=== PATIENT | female | born 1985 | race Caucasian/White ===

== ENCOUNTER → 2016-11-01 | Outpatient (CLI) | payer BC ==
[~2016-11-01] MED LIST: OMEG10007 PO; PRENTAB26 PO
== END | disposition home or self-care (01) ==
LOC: C.LABSPEC 11:19
PROVIDERS: ATTEND Obstetrics & Gynecology
DX: Z34.03 Encounter for supervision of normal first pregnancy, third trimester (principal)

== ENCOUNTER 2016-11-28 11:58 | Outpatient (CLI) | payer BC ==
[~2016-11-28] VITALS: Ht 170.2 cm; Wt 65.5 kg
[2016-11-28 13:00] VITALS: Ht 170.2 cm; Wt 65.5 kg
[2016-11-29] MEDS ORDERED: OMEG10007 PO (03:25)
[2016-11-29] MEDS ORDERED: PRENTAB26 PO (03:25)
== END 2016-11-28 13:44 | disposition home or self-care (01) ==
LOC: C.LD 11:58 → C.OPB 11:58 → EDSTATUS 11-29 11:59
PROVIDERS: ATTEND Obstetrics & Gynecology
DX: O26.893 Other specified pregnancy related conditions, third trimester (principal); Z3A.39 39 weeks gestation of pregnancy

== ENCOUNTER 2016-11-29 01:15 | Inpatient (IN) | payer BC ==
[~2016-11-29] VITALS: Ht 170.2 cm; Wt 65.5 kg
[2016-11-29 03:19] VITALS: Ht 170.2 cm; Wt 65.5 kg
[2016-11-29] MEDS ORDERED: PRENTAB26 PO (03:25)
[2016-11-29] MEDS ORDERED: OMEG10007 PO (03:25)
[2016-11-29 03:26] LABS: HEMATOCRIT 35.5 % (37-47); MEAN CELL VOLUME 88.1 fL (80-100); MEAN CORPUSCULAR HEMOGLOBIN 31.5 pg (25-34); MEAN CORPUSCULAR HGB CONC 35.8 g/dl (32-36); MEAN PLATELET VOLUME 9.7 fL (7.4-10.4); PLATELET COUNT 125 K/uL (130-400); RED BLOOD COUNT 4.03 M/uL (4.2-5.4); WHITE BLOOD COUNT 19.21 K/uL (4.8-10.8)
[2016-11-29] MEDS ORDERED: BUPIVACAINE 0.25% 30 ML VIAL ONE (04:07)
[2016-11-29] MEDS ORDERED: EpHEDrine SULFATE INJ 50 MG/ML AMP ONE (04:07)
[2016-11-29] MEDS ORDERED: FENTANYL 2MCG/ML ROPIV 1.25MG/ML 100ML BAG EPI ONE (04:07)
[2016-11-29] MEDS ORDERED: FENTANYL CITRATE INJ 50 MCG/1 ML 2 ML VIAL ONE (04:08)
[2016-11-29] MEDS ORDERED: NALOXONE HCL INJ 1 MG in SODIUM CHLORIDE 0.9% 1000ML 1,000 ML IV PRN (05:47)
[2016-11-29] MEDS ORDERED: LACTATED RINGER'S 1000ML 500 ML IV PRN (05:47)
[2016-11-29] MEDS ORDERED: FENTANYL 2MCG/ML ROPIV 1.25MG/ML 100ML BAG EPI PRN (06:00)
[2016-11-29] MEDS ORDERED: NALBUPHINE HCL INJ 10 MG/ML AMP IV PRN (06:00)
[2016-11-29] MEDS ORDERED: EpHEDrine SULFATE INJ 50 MG/ML AMP IV PRN (06:00)
[2016-11-29] MEDS ORDERED: DiphenhydrAMINE HCL 50 MG/ML VIAL IV PRN (06:00)
[2016-11-29] MEDS ORDERED: NALOXONE HCL INJ 0.4 MG/1 ML VIAL/CARP IV PRN (06:00)
--- NOTE | 2016-11-29 08:45 | Medical Student: [facility] ---
Med Student History & Physical Date of Service Nov 29, 2016. 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 Yesterday in clinic, patient had a reactive NST with possible late decelerations. NST at hospital was reactive and had absent late decelerations. Patient was sent home and a kick count was recommended that night (10 counts in 2 hours). She was informed to come back when contractions lasted 1 minute every 5 minutes for an hour. Her PMH history is significant for acid reflux. Only medications taken during were vitamins and Zantac. Her FLY TIER history is insignificant. Last pap smear in Oct 2015 was negative for intraepithelial lesion or malignancy. Patient has no OB history. Patient is blood type O +, negative antibody screen, rubella immune, VDRL/RPR nonreactive, negative HbsAg and HIV, negative G & C, negative Quad screen, and negative GBS culture. OB History N/A FLY TIER History Patient's FLY TIER history is significant for menarche at age 13. Menstruation occurs eery 29 days. Patient does experience significant cramping at the beginning of her periods. Last pap smear in 2015 was negative for intraepithelial lesion. No history of STDs. Past Medical History PMH is significant for acid reflux. Past Surgical History Surgical history significant for wisdom teeth extraction in 2004. Family History Family history is significant for skin CA (dad) and diabetes (mom and grandfather). Social History Smoking Status: Never Smoker Smokeless Tobacco Use: No Alcohol Use: none Drug Use: none Marital Status: Housing status: lives with significant other (in [place], [place] ) Occupational Status: employed (change management consultant ) Allergies Coded Allergies: No Known Allergies (Unverified , 11/29/16) Home Medications Fish Oil ([place]-3), Unknown Dose PO Multivit/Min/Iron/Fol Ac/Pren ( Vitamin), 1 TAB PO DAILY Review of Systems Constitutional: No fever Eyes: No worsening of vision ENT: No hearing loss Respiratory: No cough, No shortness of breath Abdomen: No constipation, No diarrhea, No nausea, No pain, No vomiting Genitourinary - Female: No dysuria Integumentary: No rash Physical Exam Vital Signs: BP: 113/55 HR: 69 General Appearance: WD/WN, no apparent distress Respiratory/Chest: lungs clear, normal breath sounds Cardiovascular: regular rate, rhythm, no edema, no gallop, no JVD, no murmur Skin: normal color, warm/dry cervical exam: 6 cm dilated @ 0800 Monitoring External Monitor: heart tracing category 1: HR 136, moderate variability, present accelerations, absent late, variable and early decelerations Tocodynamometer: contractions every 4-6 minutes Laboratory Results 11/29/16 02:15 Test 11/29/16 02:15 Red Blood Count 4.03 M/uL (4.2-5.4) Mean Corpuscular Volume 88.1 fL (80-100) Mean Corpuscular Hemoglobin 31.5 pg (25-34) Mean Corpuscular Hemoglobin Concent 35.8 g/dl (32-36) RDW Standard Deviation 45.0 fL (36.4-46.3) RDW Coefficient of Variation 14.1 % (11.5-14.5) Mean Platelet Volume 9.7 fL (7.4-10.4) Assessment and Plan 31 year old , 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 Patient has epidural in place. No Oxytocin. Patient is currently in active stage [address] Henderson recommended an artificial rupture of membranes for labor progression. Patient and will discuss if they want artificial ROM. Patient would like to sleep and is concerned she will progress too fast if artificial rupture of membranes.
--- NOTE | 2016-11-29 10:06 | Medical Student: [facility] ---
Med Student [employer]ER [employer]SEMBLER Progress Nt Date of Service Nov 29, 2016. 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 Blood type O +, rubella immune. Patient denies CAPONE, vision changes, dizziness and lightheadedness. Patient is feeling movements and contractions. Bloody show, but no other fluid leaks. Review of Systems Constitutional: No fever Respiratory: No cough, No shortness of breath Cardiac: No chest pain, No palpitations Abdomen: No constipation, No diarrhea, No nausea, No pain, No vomiting Objective Vital Signs HR 61 BP 99/52 Physical Exam Respiratory/Chest: lungs clear, normal breath sounds Cardiovascular: regular rate, rhythm, no gallop, no JVD, no murmur Extremities: no calf tenderness EFM: heart tracing category 1: HR 135, moderate variability, present accelerations, present early decelerations, no variable or late decelerations Tocodynamometer: contractions every 5 minutes Cervical Exam: 6 cm dilated, 100% effaced, 0 station Laboratory Results Last 24 Hours Test 11/29/16 02:15 White Blood Count 19.21 K/uL Red Blood Count 4.03 M/uL Hemoglobin 12.7 g/dL Hematocrit 35.5 % Mean Corpuscular Volume 88.1 fL Mean Corpuscular Hemoglobin 31.5 pg Mean Corpuscular Hemoglobin Concent 35.8 g/dl RDW Standard Deviation 45.0 fL RDW Coefficient of Variation 14.1 % Platelet Count 125 K/uL Mean Platelet Volume 9.7 fL Medications Medications (Trade) Dose Ordered Sig/Francisca Route Start Time Stop Time Status Last Admin Dose Admin Ephedrine Sulfate (EpHEDrine SULFATE INJ) 50 mg STK-MED ONCE .ROUTE 11/29/16 04:07 11/29/16 04:09 DC 11/29/16 05:36 10 MG Fentanyl/ Ropivacaine (Fentanyl 2MCG/ Ml/Ropivacaine 1.25MG/ML) 100 ml STK-MED ONCE EPI 11/29/16 04:07 11/29/16 04:09 DC 11/29/16 05:30 100 ML Fentanyl/ Ropivacaine (Fentanyl 2MCG/ Ml/Ropivacaine 1.25MG/ML) 100 ml PRN PRN EPI 11/29/16 06:00 11/30/16 05:59 11/29/16 07:09 100 ML Assessment and Plan Continue Routine Care: 31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 Blood type O +, rubella immune. Epidural intact. Patient is currently in active stage 1 of labor. Patient was straight cathed and then Dr. Sage artificially ruptured the membranes. Continue serial cervical checks and EFM.
--- NOTE | 2016-11-29 15:02 | Medical Student: [facility] ---
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 Blood type O +, rubella immune. Patient denies CAPONE, vision changes, dizziness and lightheadedness. Patient is feeling movements and contractions. Some bleeding, but no other fluid leaks. 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 Blood type O +, rubella immune. Epidural intact. Artificial rupture of membranes at 1000 on 11/29/16. Patient is currently in active stage 1 of labor. Category 1 heart rate tracing. Plan is to start pushing at 1500.
[2016-11-29] MEDS ORDERED: OXYTOCIN 30 UNITS/500ML NSS IV ONE (15:17)
[2016-11-29] MEDS ORDERED: SUPERCREAM 0.870 % 15GM JAR EXT PRN (16:15)
[2016-11-29] MEDS ORDERED: ACETAMINOPHEN/CODEINE 300/30MG TAB PO PRN ×2 (16:15)
[2016-11-29] MEDS ORDERED: ACETAMINOPHEN 325 MG TAB PO PRN (16:15)
[2016-11-29] MEDS ORDERED: HYDROCORTISONE ACETATE 25 MG SUPP PR PRN (16:15)
[2016-11-29] MEDS ORDERED: BENZOCAINE 20% AER SPR 82.5 GM CAN EXT PRN (16:15)
[2016-11-29] MEDS ORDERED: OXYCODONE/ACETAMINOPHEN 5-325 TAB PO PRN (16:15)
[2016-11-29] MEDS ORDERED: LANOLIN OINT EXT PRN ×2 (16:15)
[2016-11-29] MEDS ORDERED: DIPHTHERIA/TETANUS/PERTUSSIS 0.5 ML SYR/VIAL IM. ONE (16:15)
[2016-11-29] MEDS ORDERED: OXYTOCIN 30 UNITS/500ML NSS IV PRN (16:15)
--- NOTE | 2016-11-29 16:31 | Medical Student: [facility] ---
Medical Student Delivery Note PRE-DELIVERY DIAGNOSIS: 31 year old , 40 weeks 0 days GA, normal labor with artificial rupture of membranes POST-DELIVERY DIAGNOSIS: same PROCEDURE: Spontaneous vaginal delivery and repair of 2nd degree perineal laceration ESTIMATED BLOOD LOSS: 350 cc FINDING: viable female , apgars and weight pending DESCRIPTION OF DELIVERY: Patient was administered epidural and progressed to complete labor. She began to push and spontaneously vaginally delivered a viable female . The was delivered in the right occiput anterior position. After the head was delivered, the mouth and nares were suctioned. No nuchal cord was noted. Next, the anterior shoulder was delivered followed by the posterior shoulder. Then the body was delivered. The baby was warmed and dried and subsequently placed on the mother's chest. The baby immediately cried vigorously. The cord was doubly clamped and cut for cord gas. Cord blood was then collected. Manual massage was then applied to the uterus. Next, the perineum, vagina and cervix were inspected for any tears. A 2nd degree perineal laceration was appreciated. This laceration was then repaired. In the middle of the repair, a gush of blood was expelled from the vagina. The placenta was then delivered spontaneously.The placenta was intact with 2 umbilical arteries, 1 umbilical vein and all cotyledons. Then continued repair of the 2nd degree perineal laceration occurred. Sponges, instruments, and needles were counted and correct at the end of the delivery. Hemostasis was achieved and Oxytocin started.
--- NOTE | 2016-11-29 17:17 | DELIVERY SUMMARY ---
DATE OF OPERATION: 11/29/2016 PREOPERATIVE DIAGNOSES: 1. Intrauterine at 39+ weeks. 2. Active labor. POSTOPERATIVE DIAGNOSES: Same. PROCEDURES: 1. Epidural anesthesia. 2. Amniotomy for clear fluid. 3. Normal spontaneous vaginal delivery. 4. Second degree perineal laceration with repair. SURGEON: Dr. Sage. ANESTHESIA: Epidural. ESTIMATED BLOOD LOSS: 350 mL. DESCRIPTION OF PROCEDURE: The patient presented to labor and delivery in early active labor. She progressed and underwent an epidural anesthetic. When she was 6 cm, she underwent an amniotomy for clear fluid and then progressed to complete complete, +1 station, labored down for an hour and then pushed for less than half an hour to deliver a viable female infant in AMANDA presentation. There was no nuchal cord. The nose and mouth were bulb suctioned on the perineum. The rest of the was then delivered with ease. The baby was placed on the maternal abdomen immediately per maternal request where the nose and mouth were again bulb suctioned. The cord was clamped and cut. The cord blood and segment were obtained. Placenta was delivered spontaneously intact with a 3-vessel cord. The cervix, sulci and rectum were examined and found to be intact. Second degree perineal laceration was repaired by reinforcing the rectal sphincter on the right side at about 10 o'clock with a [id number] suture of 2-0 Vicryl and then repairing the second degree perineal laceration with 3-0 Vicryl. Apgars and weight pending at the time of the delivery. Hemostasis was obtained with dilute Pitocin and fundal massage. Mother doing well at the end of the delivery. Baby taken to the nursery for evaluation. I attest to the content of the Intraoperative Record and any orders documented therein. Any exceptio ns are noted below.
--- NOTE | 2016-11-29 17:57 | Anesthesia Procedure Note ---
Anesthesia Epidural Removal Nt Date & Time Nov 29, 2016 at 17:57 Vital Signs Pain Intensity: 0.0 Notes Mental Status: alert / awake / arousable, participated in evaluation Nausea / Vomiting: adequately controlled Pain: adequately controlled Airway Patency, RR, SpO2: stable & adequate BP & HR: stable & adequate Hydration State: stable & adequate Neuraxial Anesthesia: was administered, sensory block is resolving Anesthetic Complications: no major complications apparent, pt satisfied with anesthetic care Epidural: removed without complications, with tip intact
[2016-11-29 18:25] VITALS: BP 120/72; PULSE 88; TEMP 36.5
[2016-11-29] MEDS: IBUPROFEN 600 MG TAB PO PRN ×2 (18:44→23:20)
[2016-11-29 20:15] VITALS: BP 109/63; PULSE 80; TEMP 36.5
[2016-11-29] MEDS: DOCUSATE SODIUM 100 MG CAP PO SCH (20:21)
[2016-11-29 23:15] VITALS: BP 100/61; PULSE 65; TEMP 36.7
[2016-11-30 04:16] VITALS: BP 85/49; PULSE 66; TEMP 36.4
[2016-11-30] MEDS: IBUPROFEN 600 MG TAB PO PRN ×4 (04:19→22:02)
--- NOTE | 2016-11-30 06:51 | Progress Note ---
Subjective Nov 30, 2016. Subjective conversation w/ patient, physical exam Ambulation: limited ambulation Voiding: no voiding problems Passing Gas: Yes Diet Tolerance: Regular Diet Lochia: Moderate Feeding Type: Breast Feeding Pain: Pain well controlled with Motrin Review of Systems Constitutional: No chills, No fever Respiratory: No cough, No shortness of breath Cardiac: No chest pain Breast: No breast pain Abdomen: No nausea, No pain, No vomiting Female : No dysuria Objective Vital Signs Date Time Temp Pulse Resp B/P Pulse Ox O2 Delivery O2 Flow Rate FiO2 11/30/16 04:16 36.4 66 20 85/49 Room Air 11/29/16 23:15 36.7 65 20 100/61 Room Air 11/29/16 23:15 Room Air 11/29/16 20:15 36.5 80 20 109/63 Room Air 11/29/16 18:25 36.5 88 16 120/72 Room Air 11/29/16 18:25 Room Air Physical Exam General Appearance: WELL-APPEARING, WD/WN, NO APPARENT DISTRESS Respiratory/Chest: lungs clear, normal breath sounds Cardiovascular: regular rate, rhythm, no gallop, no murmur Abdomen: non tender, soft Fundus: Firm, Relation to Umbilicus (1cm below umbilicus) Incision Description: Clean, Dry & Intact Extremities: no calf tenderness Laboratory Results Last 24 Hours Test 11/30/16 04:44 Medications Current Inpatient Medications Medications (Trade) Dose Ordered Sig/Francisca Route Start Time Stop Time Status Last Admin Dose Admin Oxytocin (Pitocin IV) 30 units UD PRN IV 11/29/16 16:15 12/29/16 16:14 Benzocaine (Dermoplast Aero Spr) 1 appln PRN PRN EXT 11/29/16 16:15 12/29/16 16:14 Cocaine HCl (Supercream 0.870% Cr) BID PRN EXT 11/29/16 16:15 12/13/16 16:14 Hydrocortisone Acetate (Anusol Hc Supp) 25 mg BID PRN SC 11/29/16 16:15 12/29/16 16:14 Lanolin (Lanolin Oint) PRN PRN EXT 11/29/16 16:15 12/29/16 16:14 Prenat Multivit/ [place]/Iron/Folic Ac ( Vitamin Tab) 1 tab DAILY PO 11/30/16 08:00 12/30/16 07:59 Ibuprofen (Motrin Tab) 600 mg Q4H PRN PO 11/29/16 16:15 12/29/16 16:14 11/30/16 04:19 600 MG Acetaminophen (Tylenol Tab) 650 mg Q6H PRN PO 11/29/16 16:15 12/29/16 16:14 Acetaminophen/ Codeine Phosphate (Tylenol w/ Codeine #3 Tab) 1 tab Q4H PRN PO 11/29/16 16:15 12/29/16 16:14 11/29/16 20:21 1 TAB Acetaminophen/ Codeine Phosphate (Tylenol w/ Codeine #3 Tab) 2 tab Q4H PRN PO 11/29/16 16:15 12/29/16 16:14 Docusate Sodium (coLACE CAP) 100 mg BID PO 11/29/16 20:00 12/29/16 19:59 11/29/16 20:21 100 MG Assessment and Plan Post- Day#: 1 Continue Routine Care: - Vital Signs reviewed and WNL (temp max 36.4) - Blood Type: O+, GBS Negative, Rubella Immune - Encourage Ambulation today - Tolerating PO Diet - Pain well controlled with Motrin Resident Physician Supervision Note: I interviewed and examined the patient. Discussed with Dr. Smith and agree with findings and plan as documented in the note. Any exceptions or clarifications are listed here: Doing well. Needs to ambulate and hydrate. Baby off oxygen and will hopefully come off the bed today. Documented By: Ximena Sage
--- NOTE | 2016-11-30 06:53 | Medical Student: [facility] ---
Med Student SKEWER UP Progress Nt Date of Service Nov 30, 2016. Subjective conversation w/ patient Ambulation: limited ambulation Voiding: no voiding problems Passing Gas: Yes Diet Tolerance: Regular Diet Lochia: Large Feeding Type: Breast Feeding Pain: 1.5/10 bottom pain Review of Systems Constitutional: No chills, No fever Respiratory: No cough, No shortness of breath Cardiac: No chest pain, No palpitations Abdomen: No constipation, No diarrhea, No nausea, No pain, No vomiting Female : No dysuria Objective Vital Signs Date Time Temp Pulse Resp B/P Pulse Ox O2 Delivery O2 Flow Rate FiO2 11/30/16 04:16 36.4 66 20 85/49 Room Air 11/29/16 23:15 36.7 65 20 100/61 Room Air 11/29/16 23:15 Room Air 11/29/16 20:15 36.5 80 20 109/63 Room Air 11/29/16 18:25 36.5 88 16 120/72 Room Air 11/29/16 18:25 Room Air Physical Exam General Appearance: WD/WN, NO APPARENT DISTRESS Respiratory/Chest: lungs clear, normal breath sounds Cardiovascular: regular rate, rhythm, no edema, no gallop, no JVD, no murmur Abdomen: normal bowel sounds Fundus: Firm, Tender, Relation to Umbilicus (at umbilicus ) Extremities: non-tender, no pedal edema Laboratory Results Last 24 Hours Test 11/30/16 04:44 Medications Medications (Trade) Dose Ordered Sig/Francisca Route Start Time Stop Time Status Last Admin Dose Admin Oxytocin (Pitocin IV) 30 units STK-MED ONCE IV 11/29/16 15:17 11/29/16 15:19 DC 11/29/16 15:58 30 UNITS Ibuprofen (Motrin Tab) 600 mg Q4H PRN PO 11/29/16 16:15 12/29/16 16:14 11/30/16 04:19 600 MG Acetaminophen/ Codeine Phosphate (Tylenol w/ Codeine #3 Tab) 1 tab Q4H PRN PO 11/29/16 16:15 12/29/16 16:14 11/29/16 20:21 1 TAB Docusate Sodium (coLACE CAP) 100 mg BID PO 11/29/16 20:00 12/29/16 19:59 2/9/17 20:21 100 MG Assessment and Plan Post- Day Number: 1 Continue Routine Care: 31 year old PP day 1, at 40 weeks GA with 2nd degree perineal laceration repair. -Vitals stable, except for slightly hypotensive at 85/49 -Blood type O +, rubella immune -doing well clinically -encourage ambulation -tolerating PO diet -pain well controlled with PO Ibuprofen 600 mg q4hr PRN & PO Tylenol 1 tab q4hr PRN -discharge home tomorrow
[2016-11-30 07:04] LABS: HEMATOCRIT 32.4 % (37-47)
[2016-11-30] MEDS: PRENATAL VITAMIN TAB PO SCH (07:54)
[2016-11-30] MEDS: DOCUSATE SODIUM 100 MG CAP PO SCH ×2 (07:54→20:42)
[2016-11-30 08:10] VITALS: BP 112/68; PULSE 73; TEMP 36.4; O2SAT 98
[2016-11-30 12:15] VITALS: BP 99/62; PULSE 72; TEMP 36.5; O2SAT 98
[2016-11-30 16:15] VITALS: BP 89/52; PULSE 72; TEMP 36.7; O2SAT 99
[2016-12-01 00:45] VITALS: BP 92/57; PULSE 71; TEMP 36.5; O2SAT 96
--- NOTE | 2016-12-01 06:30 | Progress Note ---
Subjective Dec 01, 2016. Subjective conversation w/ patient, physical exam Ambulation: ambulating normally Voiding: no voiding problems Passing Gas: Yes Diet Tolerance: Regular Diet Lochia: Small Feeding Type: Breast Feeding Pain: No pain reported this morning Review of Systems Constitutional: No chills, No fever Respiratory: No cough, No shortness of breath Cardiac: No chest pain Breast: No breast pain Abdomen: No nausea, No pain, No vomiting Female : No dysuria Objective Vital Signs Date Time Temp Pulse Resp B/P Pulse Ox O2 Delivery O2 Flow Rate FiO2 12/01/16 00:45 36.5 71 16 92/57 96 Room Air 12/01/16 00:45 96 Room Air 11/30/16 16:15 99 Room Air 11/30/16 16:15 36.7 72 18 89/52 99 Room Air 11/30/16 12:15 36.5 72 16 99/62 98 Room Air 11/30/16 08:10 98 Room Air 11/30/16 08:10 36.4 73 16 112/68 98 Room Air Physical Exam General Appearance: WELL-APPEARING, WD/WN, NO APPARENT DISTRESS Respiratory/Chest: lungs clear, normal breath sounds Cardiovascular: regular rate, rhythm, no gallop, no murmur Abdomen: non tender, soft Fundus: Firm, Relation to Umbilicus (1cm below umbilicus) Extremities: no calf tenderness Laboratory Results Last 24 Hours Test 11/30/16 06:43 Hemoglobin 11.3 g/dL Hematocrit 32.4 % Medications Current Inpatient Medications Medications (Trade) Dose Ordered Sig/Francisca Route Start Time Stop Time Status Last Admin Dose Admin Oxytocin (Pitocin IV) 30 units UD PRN IV 11/29/16 16:15 12/29/16 16:14 Benzocaine (Dermoplast Aero Spr) 1 appln PRN PRN EXT 11/29/16 16:15 12/29/16 16:14 Cocaine HCl (Supercream 0.870% Cr) BID PRN EXT 11/29/16 16:15 12/13/16 16:14 Hydrocortisone Acetate (Anusol Hc Supp) 25 mg BID PRN CA 11/29/16 16:15 12/29/16 16:14 Lanolin (Lanolin Oint) PRN PRN EXT 11/29/16 16:15 12/29/16 16:14 Prenat Multivit/ [place]/Iron/Folic Ac ( Vitamin Tab) 1 tab DAILY PO 11/30/16 08:00 12/30/16 07:59 11/30/16 07:54 1 TAB Ibuprofen (Motrin Tab) 600 mg Q4H PRN PO 11/29/16 16:15 12/29/16 16:14 11/30/16 22:02 600 MG Acetaminophen (Tylenol Tab) 650 mg Q6H PRN PO 11/29/16 16:15 12/29/16 16:14 Acetaminophen/ Codeine Phosphate (Tylenol w/ Codeine #3 Tab) 1 tab Q4H PRN PO 11/29/16 16:15 12/29/16 16:14 11/29/16 20:21 1 TAB Acetaminophen/ Codeine Phosphate (Tylenol w/ Codeine #3 Tab) 2 tab Q4H PRN PO 11/29/16 16:15 12/29/16 16:14 Docusate Sodium (coLACE CAP) 100 mg BID PO 11/29/16 20:00 12/29/16 19:59 11/30/16 20:42 100 MG Assessment and Plan Post- Day#: 2 Continue Routine Care: - Vital Signs reviewed and WNL (temp max 36.5) - Blood Type: O+, GBS Negative, Rubella Immune - Doing well clinically - Encourage Ambulation today - Tolerating PO Diet - Pain well controlled this morning - Discharge today Resident Physician Supervision Note: I was present with Dr. Smith during the history and exam. I discussed the case with the resident and agree with the findings and plan as documented in the note. Any exceptions or clarifications are listed here: Doing well, ready for d /c home, instructions reviewed. f/u 6wks. Documented By: Ashleigh Hernandez
--- NOTE | 2016-12-01 06:31 | Discharge Instructions ---
Discharge Instructions Admission Reason for Admission: Normal Labor Discharge Discharge Diagnosis / Problem: Vaginal Delivery Discharge Goals Goal(s): Routine recovery after delivery Medications Continue Dispensed Medications: supercream, dermaplast, tucks, lansinoh Activity Recommendations Activity Limitations: per Instructions/Follow-up section . Instructions / Follow-Up Instructions / Follow-Up ACTIVITY RECOMMENDATIONS: * Gradual return to full activity over the next 2-3 weeks. * No lifting - nothing heavier than baby over the next 2-3 weeks. * Do not engage in vigorous exercise, sexual activity or sports until cleared by your physician. * Do not drive or operate any motorized equipment until cleared by your physician. * You may shower/bathe daily. MEDICATIONS: For discomfort or pain, you may use Acetaminophen (Tylenol), Ibuprofen (Advil), or Naproxen (Aleve) following the package directions. For constipation you may use Colace following the package directions. BREAST CARE: If you are not breast feeding: * Wear a supportive bra 24 hours a day for one to two weeks. * Avoid stimulating your breasts and nipples as much as possible during the first few weeks after delivery. * When taking a shower, have the warm water hit your back, not breasts. * When your breasts feel full, apply ice packs. Usually three to four times a day helps ease the discomfort. * Take a mild pain medication (Tylenol / Motrin) when you are uncomfortable. If breast feeding: * Use breast milk to lubricate nipples. Lansinoh cream may be used for sore nipples. You do not need to remove cream prior to breast feeding. If using a different brand of cream, check the label for directions regarding removal of cream prior to nursing. * Wear a supportive bra. * If having problems with breasts or breast feeding, call a seo consultant or your health care provider. EPISIOTOMY CARE: After delivery, if you have an episiotomy (stitches), the following steps will ease discomfort and aid healing. * For the first 24 hours after delivery, place ice packs next to your episiotomy to help reduce swelling. * After the first 24 hour-period, sitz baths, either portable or in the tub, are suggested. A shower with a shower arm sprayed over the episiotomy may be comforting. * Dulce care should be done after each voiding and bowel movement. Squirt warm water from a plastic bottle over the perineum (region of the body between the anus and urinary opening) and pat dry. * Use Dermoplast to ease discomfort. Shake container. [place] directly over the episiotomy. Place a Tucks on a clean sanitary pad next to your episiotomy. SPECIAL CARE INSTRUCTIONS: When you are discharged from the hospital, it is important for you to follow the instructions listed below: * During the first week at home, you should be able to care for yourself and your baby. In addition, the usual light household activities are encouraged. * Limit your activities to the way you feel. Do not try to clean the house or move furniture. Be sensible. * If you actively engage in sports and have done so up until the time of your delivery, you may resume these activities as soon as you feel able. This may take up to one month or even longer. Use good judgment. * Continue to take your vitamins for at least six weeks after the of your baby. * Your diet need not be limited unless you were on a special diet before your delivery. Breast-feeding mothers need around 2500 calories per day and at least 64-80 ounces of fluid per day (8 to 10 glasses). * You should eat foods from the four major food groups. Crash diets or fad diets are to be avoided. Eating lean meats, fresh fruits and vegetables, low-fat dairy products, high fiber foods and a regular exercise program, will help you get back to your pre- weight without putting your health at risk. * Constipation is sometimes a problem after delivery. Take a mild laxative as needed. If breast feeding, Milk of Magnesia is acceptable to use. You may use a suppository or Fleets enema if no episiotomy. * A daily shower or tub bath is suggested. Be sure to thoroughly and gently dry the perineum. * A bloody vaginal discharge will usually continue until around four weeks post . A small amount of bleeding may continue for as long as six weeks. Vaginal discharge changes from the bright red bleeding after delivery to pink then brownish and finally yellowish-pink before becoming white and disappearing. * Bleeding may increase with activity. Your first period may come in 4-8 weeks. If you are breast feeding, your period may be delayed even longer. * [place] (sex) can begin whenever both you and your partner feel comfortable and do not have any form of genital infection. It is recommended that you wait at least six weeks for internal and external healing to occur. If you have questions, please talk to your health care practitioner. A condom should be used to prevent infection and . * Foreplay, gentle intercourse and lubrication is very important the first several times to prevent pain. A water-based lubricant such as K-Y jelly or Astroglide may be used. * If you have RH negative blood and your baby is RH positive, you will receive RHOGAM by injection prior to discharge. The nurse will give you a card to keep with you that has the date and place that you received RHOGAM after delivery. * During your care, you had a Rubella screen done to check for the presence of rubella antibodies in your blood. If your test was negative, you will receive a Rubella vaccine prior to discharge. This vaccine may cause a fever, soreness at the injection site and flu-like symptoms. If these symptoms persist, notify your health care practitioner. is not advised for one month after a Rubella vaccine. * Verbalizes understanding of car seat law as reviewed with patient nursing. * Car Seat hand-out given and reviewed with patient by nursing. * Shaken baby information reviewed with patient by nursing. Call you doctor if: * Heavy bleeding (saturating several pads an hour) or passing clots the size of your fist. * A fever >101 degrees F (38.3 degrees C) on two occasions four hours apart and /or chills. * Unusual pain in the pelvic or vaginal areas. * "Baby Blues" lasting longer than two weeks. If you have any questions or concerns, call your health care practitioner at . FOLLOW UP VISIT: * Please call the office at to schedule a 6 week examination. It is important you keep this appointment. It is important for you to make arrangements for either yearly or twice yearly check-ups thereafter. Current Hospital Diet Patient's current hospital diet: Regular OB Diet, Vegetarian Diet Discharge Diet Recommended Diet: Regular Diet Pending Studies Studies pending at discharge: no Medical Emergencies . Who to Call and When: Medical Emergencies: If at any time you feel your situation is an emergency, please call 911 immediately. . Non-Emergent Contact Non-Emergency issues call your: Frame Assembler . . "Provider Documentation" section prepared by Tom Smith. VTE Core Measure Inpt VTE Proph given/why not?: Treatment not indicated
[2016-12-01] MEDS: DOCUSATE SODIUM 100 MG CAP PO SCH ×2 (07:18→19:47)
[2016-12-01] MEDS: PRENATAL VITAMIN TAB PO SCH (07:18)
[2016-12-01] MEDS: IBUPROFEN 600 MG TAB PO PRN ×3 (07:18→21:43)
[2016-12-01 08:05] VITALS: BP 104/76; PULSE 62; TEMP 36.5
[2016-12-01 16:30] VITALS: BP 106/66; PULSE 64; TEMP 36.8; O2SAT 98
[2016-12-01 22:25] VITALS: BP_DIAS 66; PULSE 64; TEMP 36.8
== END 2016-12-01 22:30 | disposition home or self-care (01) | DRG 775 ==
LOC: C.OPB 01:15 → C.LD 01:18 → C.OPB 02:03 → C.OBG 17:43
PROVIDERS: ADMIT Obstetrics & Gynecology; ATTEND Obstetrics & Gynecology
PROC: 10E0XZZ Delivery of Products of Conception, External Approach (ICD-10-PCS; principal; 2016-11-29)
PROC: 0KQM0ZZ Repair Perineum Muscle, Open Approach (ICD-10-PCS; principal; 2016-11-29)
DX: O70.1 Second degree perineal laceration during delivery (principal); Z3A.40 40 weeks gestation of pregnancy; Z37.0 Single live birth

== ENCOUNTER → 2018-02-24 | Outpatient (CLI) | payer OTHER ==
[~2018-02-24] MED LIST changes: -OMEG10007 PO
== END | disposition home or self-care (01) ==
LOC: C.PAPS 11:55
PROVIDERS: ATTEND Obstetrics & Gynecology
DX: Z12.4 Encounter for screening for malignant neoplasm of cervix (principal); R87.615 Unsatisfactory cytologic smear of cervix

== ENCOUNTER 2020-03-03 12:50 | Inpatient (IN) ==
--- NOTE | 2020-03-03 13:40 | History & Physical Report ---
Date of Service March 03, 2020 Assessment & Plan (1) Supervision of elderly multigravida: Eli is an otherwise healthy 35yo presenting in active labor at 39w6d - admit to L&D - plan reviewed with patient and - place peripheral IV - good contraction pattern without pitocin; patient permitted to ambulate halls - patient considering epidural, anesthesia consult placed - anticipate History of Present Illness Primary Care Provider: Thuan Flores MD Eli is an otherwise healthy 35 yo at 39w 6d ( dated via LPM) who presented to labor & delivery with increasing frequency of painful contractions. Only complication with this is AMA. Only medication is PNV. Eli has been attending OB appointments with weekly NSTs since 32 weeks. + movem ent. No vaginal bleeding. No fluid loss. Labs Blood type: O+ Antibody Screen: neg H.2 Hct: 37.7 Plt: 141 Rubella: Immune VDRL/RPR: Non-reactive Gonorrhea: neg Chlamydia: neg GBS: neg HIV: neg HbsAq: neg Glucose Tolerance x2: passed two hour GTT Allergies Allergy/AdvReac Type Severity Reaction Status Date / Time No Known Drug Allergies Allergy Verified 02/24/20 10:46 Home Medications Home Medications Medication Instructions Recorded Confirmed Type prenat.vits,raquel,peo-toww-pnokz 1 tab PO DAILY 07/24/19 03/03/20 History Patient History Medical History Anemia Anxiety Varicella Surgical History S/P wisdom tooth extraction Family History Mother Diabetes Grandfather (Maternal) Diabetes Grandmother (Maternal) Pancreatic cancer Social History Preferred Language: Belgian Communication Ability: Effective On Call Pharmacy Technician Required: No Beliefs That Will Affect Care: None marital status: marital status details: Narendra Pemberton [phone] Current Living Situation: Spouse Current Living Situation Comment: Lives with and daughter. current occupational status: student current occupation: PhD student [employer] Other Information That Helps Us Care for You: No Feels Safe at Home: Yes Safety Concerns: Feels Safe At This Time Smoking Status: Never smoker Do You Dip or Chew Tobacco: No ; Hx Alcohol Use: Yes Alcohol type: wine Hx Substance Use: No Review of Systems no fever, no chills and no sweats no worsening vision no cough and no dyspnea no chest pain, no palpitations and no calf pain no nausea, no vomiting, no constipation and no diarrhea/loose stools no dysuria and no urinary frequency Physical Exam Constitutional: WD/WN, vitals as above Eyes: + anicteric sclerae Neck: normal visual inspection Respiratory: normal respiratory effort, lungs clear to auscultation does not use accessory muscles Auscultation: no crackles, no rales, no wheezes and no pleural rub Cardiovascular: Rate/Rhythm: regular rate and regular rhythm Heart Sounds: normal S1 and normal S2; no gallop, no murmur and no cardiac rub Gastrointestinal (Abdomen): Gravid. Uterus at term; + heart tones; vertex position. EFW: 6-7 pounds Neurologic: awake; no focal motor deficits Psychiatric: A+Ox3, euthymic affect Genitourinary: OB Exam Monitor Tracing: + external FHT monitor used Cervica l Exam: 5-6 cm/ 90% effacement/ -2 station, soft Results & Data Vital Signs (Past 12 Hours) Vital Signs Temp Pulse Resp BP 03/03/20 13:01 36.9 C 18 03/03/20 12:59 67 101/52 L Monitoring External Monitor Baseline HR: 140 bpm Variability: moderate Accelerations: 2 in 20 min Decelerations: none Category: I Tocodynamometer Contractions: occurring every 3 minutes on monitor Supervising Physician Co-Signing Physician Notes Resident Physician Supervision Note: I interviewed and examined the patient. Discussed with Dr. Rapp and agree with findings and plan as documented in the note. Any exceptions or clarifications are listed here: None Documented By: Rachel Good DO Resident Activity Tracking Resident Involvement: Resident Care Provided Care Provided: OB Delivery
[2020-03-03 14:00] LABS: Hematocrit (blood only) 37.7 % (37-47); Hemoglobin 13.2 g/dL (12.0-16.0); Mean Corpuscular Hemoglobin 31.1 pg (25-34); Mean Corpuscular Volume 88.7 fL (80-100); Platelet Count 141 K/uL (130-400); RDW Coefficient of Variation 14.2 % (11.5-14.5); RDW Standard Deviation 46.5 fL (36.4-46.3); Red Blood Count 4.25 M/uL (4.2-5.4); White Blood Count 15.84 K/uL (4.8-10.8)
[2020-03-03] MEDS: LACTATED RINGER'S 1,000 ML IV PRN ×2 (16:15→17:15)
[2020-03-03] MEDS ORDERED: ePHEDrine sulfate 50 MG/ML AMP ONE (16:22)
[2020-03-03] MEDS ORDERED: fentaNYL 2MCG/ML ROPIV 1.25MG/ML 100 ML BAG EPI ONE (16:23)
[2020-03-03] MEDS ORDERED: BUPIVACAINE 0.25% 30 ML VIAL ONE (16:23)
[2020-03-03] MEDS ORDERED: fentaNYL citrate 100 MCG/2 ML VIAL ONE (16:23)
--- NOTE | 2020-03-03 17:11 | Anesthesiology Consultation ---
Date of Service March 03, 2020 Assessment & Plan Chart Review Chart Review: Acceptable Risk for Labor Epidural Consults Requested none History Height/Weight Height: 5 ft 6 in Weight: 68.039 kg Allergies Allergy/AdvReac Type Severity Reaction Status Date / Time No Known Drug Allergies Allergy Verified 02/24/20 10:46 Medications Home Medications Medication Instructions Recorded Confirmed Last Taken prenat.vits,raquel,bsp-dgrw-soenp 1 tab PO DAILY 07/24/19 03/03/20 03/02/20 Active Medications Generic Name Dose Route Start Last Admin Trade Name Freq PRN Reason Stop Dose Admin Lactated Ringer's 1,000 mls @ 125 mls/hr 03/03/20 13:26 03/03/20 16:15 Lr IV 03/05/20 13:25 999 mls/hr .Q8H PRN Administration L&D Protocol Protocol Past Medical History Medical History Anemia Anxiety Varicella Past Family History Family History Mother Diabetes Grandfather (Maternal) Diabetes Grandmother (Maternal) Pancreatic cancer Past Surgical History Surgical History S/P wisdom tooth extraction Social History Smoking Status: Never smoker Do You Dip or Chew Tobacco: No Hx Alcohol Use: Yes Alcohol type: wine Alcohol Intake Frequency Comment: 3 occurrences of 1/2 glass of red wine. Hx Substance Use: No Physical Exam Vital Signs Last Vital Signs Temp 36.7 C 03/03/20 14:57 Pulse 65 03/03/20 17:09 Resp 18 03/03/20 14:57 BP 107/54 L 03/03/20 17:09 Pulse Ox 100 03/03/20 17:06 Testing Laboratory Results 03/03/20 13:45
[2020-03-03] MEDS ORDERED: NALBUPHINE HCL INJ 10 MG/ML AMP IV PRN (17:13)
[2020-03-03] MEDS ORDERED: NALOXONE HCL 1 MG in SODIUM CHLORIDE 0.9% 1000ML 1,000 ML IV PRN (17:13)
[2020-03-03] MEDS ORDERED: ePHEDrine sulfate 50 MG/ML AMP IV PRN (17:13)
[2020-03-03] MEDS ORDERED: NALOXONE HCL 0.4 MG/1 ML VIAL/CARP IV PRN (17:13)
[2020-03-03] MEDS ORDERED: fentaNYL 2MCG/ML ROPIV 1.25MG/ML 100 ML BAG EPI PRN (17:13)
[2020-03-03] MEDS ORDERED: DiphenhydrAMINE HCL 50 MG/ML VIAL IV PRN (17:13)
[2020-03-03] MEDS: OXYTOCIN 30 UNITS/500 ML BAG IV PRN ×2 (22:02→22:35)
--- NOTE | 2020-03-03 22:37 | Delivery Summary ---
Vaginal Delivery Summary Date of Service March 03, 2020 Vaginal Delivery Summary Vaginal Delivery Summary: Pre-delivery diagnoses: 35yo @ 39 6/7, spontaneous labor, AMA Post-delivery diagnoses: same Procedure: spontaneous vaginal delivery, repair of vaginal sulcal tear, 2nd degree perineal laceration, and bilateral periurethral tears. Surgeon: Rachel Good DO Complications: none Findings: Viable male . Apgars: 8/9 . Weight pending, please see thuan sery records Estimated blood loss: 500ml Description of delivery: The patient progressed to complete with epidural anesthesia. She then began to push. She spontaneously vaginally delivered a viable from the cephalic presentation. The head delivered in STUART position. The anterior shoulder delivered, followed by the posterior shoulder, followed by the body. The baby was placed on mother's abdomen and a spontaneous cry was heard. Delayed cord clamping was employed, and the cord was doubly clamped and cut. Cord blood was obtained. The placenta was delivered spontaneously intact with a 3-vessel cord. The uterus and vagina were swept of clots and debris. IV pitocin was given. The uterus became firm. The cervix, vagina, and perineum were inspected and lacerations were noted: 2nd degree perineal, right vaginal sulcal, bilateral periurethral. These were all repaired with 3-0 vicryl. Excellent hemostasis was observed. The mother and baby are recovering in stable and good condition in the room. Sponge and instrument counts were correct x 2. Rachel Good DO [facility] [place]
[2020-03-03] MEDS ORDERED: OXYCODONE/ACETAMINOPHEN 5mg/325mg TAB PO PRN (22:43)
[2020-03-03] MEDS ORDERED: OXYTOCIN 30 UNITS/500 ML BAG IV PRN (22:43)
[2020-03-03] MEDS ORDERED: HYDROCORTISONE ACETATE 25 MG SUPP PR PRN (22:43)
[2020-03-03] MEDS ORDERED: SUPERCREAM 0.870% 15 GM JAR EXT PRN (22:43)
[2020-03-03] MEDS ORDERED: bisacodyL 10 MG SUPP PR PRN (22:43)
[2020-03-03] MEDS ORDERED: ACETAMINOPHEN 325 MG TAB PO PRN (22:43)
[2020-03-03] MEDS ORDERED: BENZOCAINE 20% AER SPR 82.5 GM CAN EXT PRN (22:43)
[2020-03-03] MEDS ORDERED: DIPHTHERIA/TETANUS/PERTUSSIS 0.5 ML SYR/VIAL IM ONE (22:43)
[2020-03-04] MEDS: IBUPROFEN 600 MG TAB PO PRN ×6 (00:10→23:56)
--- NOTE | 2020-03-04 01:37 | Anesthesia Procedure Note ---
Date of Service March 04, 2020 Anesthesia Post Epidural Note Vital Signs Vital Signs: Temp Pulse Resp BP Pulse Ox 37.2 C 68 18 107/59 L 98 03/03/20 22:30 03/04/20 01:32 03/03/20 22:30 03/04/20 01:32 03/03/20 22:31 Notes Mental Status: alert / awake / arousable Nausea / Vomiting: adequately controlled Pain: adequately controlled Airway Patency, RR, SpO2: stable & adequate BP & HR: stable & adequate Hydration State: stable & adequate Neuraxial Anesthesia: was administered and sensory block is resolving Anesthetic Complications: no major complications apparent and Pt Satisfied with anesthetic care Epidural: Removed without complications and With tip intact
[2020-03-04 06:16] LABS: Hematocrit (blood only) 28.4 % (37-47); Hemoglobin 10.2 g/dL (12.0-16.0)
--- NOTE | 2020-03-04 06:23 | Obstetrical Progress Note ---
Date of Service March 04, 2020 Assessment & Plan (1) Status post vaginal delivery: Eli is a 35 yo on PPD1 after at 39w - GBS -, Blood Type O+, Rubella immune - Vitals reviewed and WNL - Hemoglobin reviewed: 13.2 down to 10.2. - syncopal episode this morning. Prodrome suggests vasovagal origin. - patient counseled on changing positions slowly with support continue routine post care - After discharge will have [address] Good. Admission and Anticipated Discharge Date Admission Date: March 03, 2020 Supervising Physician Co-Signing Physician Notes Resident Physician Supervision Note: I was present with Dr. Rapp during the history and exam. I discussed the case with the resident and agree with the findings and plan as documented in the note. Any exceptions or clarifications are listed here: PPD#1 doing well. Did pass out in the bathroom the first time she got up, did not hit head. Feeling well now. This happens to her sometimes, she is not concerned. Vitals ok. Documented By: Rachel Good, Subjective Ambulation: ambulation with assist only Voiding: no voiding problems Passing Gas:: Yes Diet Tolerance:: regular diet Lochia:: Small Feeding Type:: breast feeding Patient passed out in restroom this morning. She reported feeling lightheaded prior to the episode. She denies any associated palpitations. It was her first time being out of bed since delivering.This was witness by nurses and her . She did not strike her head. She says she "passes out easily," and reports a similar episode after her first Review of Systems Constitutional: + fatigue and + weakness; no fever, no chills and no sweats Eyes: no worsening vision Respiratory: no cough and no dyspnea Cardiovascular: no chest pain, no palpitations, no edema and no calf pain Gastrointestinal: no nausea and no vomiting Genitourinary: no dysuria and no urinary frequency Neurologic: no headache(s) Physical Exam Constitutional: WD/WN, vitals as above no acute distress Respiratory: normal respiratory effort, lungs clear to auscultation does not use accessory muscles Auscultation: no crackles, no rales, no rhonchi, no wheezes and no pleural rub Cardiovascular: Rate/Rhythm: regular rate and regular rhythm Heart Sounds: normal S1 and normal S2; no gallop, no murmur and no cardiac rub Extremities: no calf tenderness and no pedal edema Gastrointestinal (Abdomen): Inspection/Auscultation: normal bowel sounds; abdomen not distended Percussion/Palpation: abdomen soft Genitourinary: Uterus: fundus firm, palpable 1 cm below the umbilicus Results & Data ([facility] Vital Signs (Past 12 Hours) Vital Signs Temp Pulse Pulse Resp BP BP Pulse Ox 03/04/20 02:00 36.9 C 72 18 118/58 L 03/04/20 01:32 68 107/59 L 03/04/20 01:08 70 105/55 L 03/04/20 00:37 75 105/53 L 03/04/20 00:30 75 107/59 L 03/04/20 00:15 76 106/55 L 03/04/20 00:00 75 107/55 L 03/03/20 23:46 71 129/53 L 03/03/20 23:31 75 113/56 L 03/03/20 23:20 80 110/54 L 03/03/20 23:16 83 88/57 L 03/03/20 23:00 78 98/61 L 03/03/20 22:45 76 97/56 L 03/03/20 22:31 73 98 03/03/20 22:30 37.2 C 72 18 95/51 L 03/03/20 22:26 74 98 03/03/20 22:21 76 100/55 L 98 03/03/20 22:16 76 98 03/03/20 22:11 73 97 03/03/20 22:06 89 112/55 L 97 03/03/20 22:01 86 97 03/03/20 21:59 18 03/03/20 21:56 138 H 99 03/03/20 21:51 78 116/60 98 03/03/20 21:46 116 H 98 03/03/20 21:45 18 03/03/20 21:41 83 100 03/03/20 21:39 91 H 89 L 03/03/20 21:36 79 119/61 98 03/03/20 21:32 80 92 03/03/20 21:31 73 100 03/03/20 21:30 18 03/03/20 21:26 75 99 03/03/20 21:21 66 117/57 L 97 03/03/20 21:16 64 99 03/03/20 21:11 64 98 03/03/20 21:06 81 100 03/03/20 21:01 72 96 03/03/20 21:00 18 03/03/20 20:56 77 97 03/03/20 20:51 67 144/74 H 98 03/03/20 20:46 71 100 03/03/20 20:41 69 99 03/03/20 20:36 70 133/68 100 03/03/20 20:35 37.0 C 18 03/03/20 20:31 74 98 03/03/20 20:26 61 98 03/03/20 20:21 68 105/57 L 98 03/03/20 20:16 62 97 03/03/20 20:11 62 99 03/03/20 20:06 71 119/63 100 03/03/20 20:01 78 99 03/03/20 20:00 18 03/03/20 19:56 69 98 03/03/20 19:51 73 114/63 98 03/03/20 19:46 69 98 03/03/20 19:41 73 99 03/03/20 19:36 74 113/63 97 03/03/20 19:31 71 98 03/03/20 19:30 16 03/03/20 19:26 71 98 03/03/20 19:21 66 120/66 99 03/03/20 19:16 69 99 03/03/20 19:11 68 98 03/03/20 19:06 68 110/61 98 03/03/20 19:05 37.0 C 18 03/03/20 19:03 37.0 C 18 03/03/20 19:01 78 99 03/03/20 18:56 69 98 03/03/20 18:51 69 116/64 98 03/03/20 18:46 76 98 03/03/20 18:41 69 98 03/03/20 18:36 78 120/63 98 03/03/20 18:31 74 99 03/03/20 18:26 69 98 Resident Activity Tracking Resident Involvement: Resident Care Provided Care Provided: OB Delivery
[2020-03-04] MEDS: PRENATAL VITAMIN 1 TAB PO SCH (07:37)
[2020-03-04] MEDS: DOCUSATE SODIUM 100 MG CAP PO SCH ×2 (07:37→19:56)
[2020-03-04 19:21] LABS: Hematocrit (blood only) 27.6 % (37-47); Hemoglobin 9.4 g/dL (12.0-16.0)
[2020-03-04] MEDS ORDERED: bisacodyL 5 MG TABEC PO SCH (20:00)
--- NOTE | 2020-03-04 20:27 | Obstetrical Progress Note ---
Date of Service March 04, 2020 Assessment & Plan (1) Orthostatic dizziness: -Hemoglobin down to 9.2 from 10.2 this morning. -Orthostatic blood pressures do not show changes but pulse increases -Suspect probable hypovolemia -While the patient's hemoglobin is not overly low, she may not be able to tolerate this -Discussed with the patient the possibility of the need for transfusion -Patient understandably reluctant to proceed at this point -We will repeat H&H in the morning and reassess -All questions answered of the patient Subjective Asked to evaluate the patient by nursing 35-year-old G2, P2 status post vaginal delivery. The patient has been having trouble with lightheadedness throughout the day. The patient was unable to stand this morning and has had to use a bedside commode. Patient states that she "passes out easily. "Patient states that this happened after the delivery of her first child. She states that she passes out easily when having blood drawn. Patient not complaining of excessive bleeding now. Physical Exam Constitutional: WD/WN, vitals as above Results & Data Vital Signs (Past 12 Hours) Vital Signs Temp Pulse Resp BP Pulse Ox 03/04/20 12:00 98.2 F 73 20 107/54 L 97 PG Care Time/CCT Total # of Minutes Spent Total Time Spent with Patient: Total time spent is greater than 50% in coordination of care (as documented) at patient's floor/unit and/or counseling patient: Coding Level of Care Code None Diagnoses Orthostatic dizziness R42
[2020-03-05] MEDS: IBUPROFEN 600 MG TAB PO PRN ×3 (04:55→14:00)
[2020-03-05 06:36] LABS: Hematocrit (blood only) 26.7 % (37-47)
--- NOTE | 2020-03-05 07:32 | Obstetrical Progress Note ---
Date of Service March 05, 2020 Assessment & Plan (1) Orthostatic dizziness: (2) Status post vaginal delivery: - patient feeling better this AM - ambulated without sx's - Hgb 9.0 - anxious for d/c - will observe thia AM, if stable will d/c - extra Fe on D/C - instructions given - f/u in 6 weeks Subjective Ambulation: ambulating normally (not lightheaded) Feeding Type:: breast feeding Physical Exam Constitutional WD/WN, vitals as above Gastrointestinal (Abdomen) Fundus firm below umbilicus Musculoskeletal No deep calf tenderness Results & Data Vital Signs (Past 12 Hours) Vital Signs Temp Pulse Resp BP 03/04/20 23:35 98.8 F 74 18 117/67 03/04/20 20:05 97.9 F 80 18 119/67
[2020-03-05] MEDS: PRENATAL VITAMIN 1 TAB PO SCH (09:20)
[2020-03-05] MEDS: DOCUSATE SODIUM 100 MG CAP PO SCH (09:20)
== END 2020-03-05 15:15 | disposition home or self-care (01) | DRG 807 ==
LOC: OPB 12:50 → 4S1 12:51 → 4S2 03-04 02:00